=== PATIENT | male | born 1955 | race Caucasian/White ===

== ENCOUNTER → 2016-08-10 | Outpatient (CLI) | payer BC ==
[2014-08-09 11:00] VITALS: BP 148/87
[~2016-08-10] MED LIST: DOXY100C2 PO; FLUT9.9S NS; HYDR-2672 PO; INSU100I17 SQ; INSU100I27 SQ; LISI10TA2 PO; NABU500T PO; OXAP600T2 PO; TRAM50TA PO; VENTOLIN HFA18 GM IH
--- NOTE | 2016-08-10 12:39 | KCIC ---
PROCEDURE Abdomen ultrasound HISTORY Right flank pain, abdominal pain COMPARISON None FINDINGS Multiple sonographic images of the abdomen are submitted. There is no abnormality of the visualized pancreas, tail not well visualized due to bowel gas. Abdominal aortic caliber is within normal limits up to 2.2 centimeters proximally, mid segment obscured by bowel gas. Inferior vena cava is not well visualized due to bowel gas. Right kidney measured 13.6 x 5.7 x 5.3 cm. Left kidney measured 13.5 x 6.5 x 5.6 cm. There is no hydronephrosis of either kidney. There are left renal cysts, largest on the left up to 2 cm superiorly. Echogenic shadowing focus of the mid left kidney is likely a calculus, on the order of 0.7 cm. There are also apparently right renal calculi, largest estimated 0.9 cm. There is diffuse coarsening of echotexture of the liver, no focal hepatic mass demonstrated. Right lobe liver is enlarged 21 centimeters longitudinal. Common bile duct is somewhat dilated up to 0.8 centimeters. Gallbladder is present without intraluminal abnormality, wall thickening, pericholecystic fluid. Spleen measured 12.8 centimeters, a few associated calcifications. IMPRESSION 1. There is hepatic steatosis and hepatomegaly. 2. Common bile duct is somewhat dilated although no abnormality of the gallbladder. 3. There are bilateral renal calculi, no hydronephrosis. There are left renal cysts. Electronically signed by: Colin Blake MD (Aug 10, 2016 12:37:44)
== END | disposition home or self-care (01) ==
LOC: KCIC US 08:54
PROVIDERS: ATTEND Family Medicine
DX: R16.0 Hepatomegaly, not elsewhere classified (principal); N20.0 Calculus of kidney; N28.1 Cyst of kidney, acquired; K76.0 Fatty (change of) liver, not elsewhere classified
CPT/HCPCS: 76700

== ENCOUNTER → 2016-09-13 | Outpatient (CLI) | payer BC ==
[2014-08-09 11:00] VITALS: BP 148/87
[~2016-09-13] VITALS: Ht 180.3 cm; Wt 112.5 kg
[~2016-09-13] MED LIST changes: +NORMAL SALINE IV ONE; +SINCALIDE IV ONE
--- NOTE | 2016-09-13 10:40 | RAD ---
Indication: Right upper quadrant pain. The patient was administered 5.5 mCi of technetium 99m Choletec and imaging over the abdomen was performed. Next, the patient was administered 2.25 mcg of CCK intravenously and gallbladder ejection fraction was calculated. There is homogeneous uptake of activity throughout the liver. There is prompt excretion of activity into the gallbladder. There is passage of activity into the small bowel. Gallbladder ejection fraction is abnormally low at 5%. Impression: 1. No evidence of cystic duct or common bile duct obstruction. 2. Low gallbladder ejection fraction of 5%.
== END | disposition home or self-care (01) ==
LOC: NM 07:38
PROVIDERS: ATTEND Internal Medicine Gastroenterology
DX: R10.11 Right upper quadrant pain (principal); J45.909 Unspecified asthma, uncomplicated; I10 Essential (primary) hypertension; F17.200 Nicotine dependence, unspecified, uncomplicated
CPT/HCPCS: 78226; 96374; 96375; A9537; J2805

== ENCOUNTER → 2019-07-01 | Outpatient (CLI) | payer BC ==
[2014-08-09 11:00] VITALS: BP 148/87
[~2019-07-01] MED LIST changes: -HYDR-2672 PO; +HYDR-2769 PO; -NORMAL SALINE IV ONE; -SINCALIDE IV ONE
--- NOTE | 2019-07-01 15:59 | KCIC ---
FOOT RIGHT 3V DATE: 07/01/2019 12:00 AM INDICATION: Fifth digit pain after stubbing toe COMPARISON: None. FINDINGS/ IMPRESSION: Nondisplaced transverse fracture of the fifth proximal phalanx shaft. Electronically signed by: Lucas Hussein MD (07/01/2019 3:56 PM) [id number]
== END | disposition home or self-care (01) ==
LOC: KCIC 10:48
PROVIDERS: ATTEND Nurse Practitioner Family
DX: S92.514A Nondisplaced fracture of proximal phalanx of right lesser toe(s), initial encounter for closed fracture (principal); X58.XXXA Exposure to other specified factors, initial encounter; Y93.89 Activity, other specified; Y92.89 Other specified places as the place of occurrence of the external cause; Y99.8 Other external cause status
CPT/HCPCS: 73630

== ENCOUNTER → 2019-10-24 | Outpatient (CLI) | payer BC ==
[2014-08-09 11:00] VITALS: BP 148/87
--- NOTE | 2019-10-24 16:04 | RAD ---
EXAM: Renal sonogram. HISTORY: Renal cyst on CT. TECHNIQUE: Sonographic imaging of the kidneys and bladder was performed. COMPARISON: 08/10/2016. FINDINGS: The kidneys are normal in size. There are multiple simple appearing left renal cysts, the largest of which measures 1.9 cm. There is a 10 mm echogenic lesion within the upper pole of the right kidney. There are few additional smaller echogenic foci within both kidneys. The urinary bladder is unremarkable. IMPRESSION: 1. Multiple simple appearing left renal cysts. No solid renal lesion or hydronephrosis is seen. 2. Echogenic foci within both kidneys, the largest of which measures 10 mm on the right. This suggests nephrolithiasis. Electronically signed by: Deena Tovar MD (10/24/2019 4:01 PM) [facility]
== END ==
LOC: US 14:10
PROVIDERS: ATTEND Family Medicine
DX: N28.1 Cyst of kidney, acquired (principal); R94.5 Abnormal results of liver function studies
CPT/HCPCS: 76770